=== PATIENT | female | born 1945 | race Caucasian/White ===

== ENCOUNTER 2020-09-20 09:07 | Outpatient (CLI) | payer MEDICARE, BC, SELFPAY ==
[2020-09-20 09:26] LABS: Basophils Absolute Auto 0.1 K/mm3 (0.0-0.1); Basophils Percent Auto 0.8 % (0.2-1.2); Eosinophils Absolute Auto 0.1 K/mm3 (0-0.3); Eosinophils Percent Auto 1.7 % (0-4.4); Hematocrit 43.5 % (37.0-47.0); Hemoglobin 14.7 g/dL (12.0-15.0); Immature Granulocyte Absolute 0.02 K/mm3 (0.00-0.031); Immature Granulocyte Percent A 0.2 % (0-0.5); Lymphocytes Absolute Auto 2.59 K/mm3 (0.9-3.2); Lymphocytes Percent Auto 31.1 % (18.3-44.2); Mean Corpuscular HGB Conc 33.8 g/dl (32-36); Mean Corpuscular Hemoglobin 29.7 pg (26-34); Mean Corpuscular Volume 87.9 fl (80-100); Mean Platelet Volume 10.1 fl (7.4-10.4); Monocytes Absolute Auto 0.6 K/mm3 (0.1-0.6); Monocytes Percent Auto 6.6 % (2.6-8.5); Neutrophils Percent Auto 59.6 % (45.5-73.1); Platelet Count Result 252 k/mm3 (150-375); Red Blood Count 4.95 M/mm3 (4.2-5.4); Red Cell Distribution Width 12.8 % (11.5-14.5); White Blood Count 8.3 K/mm3 (4.5-10.0)
[2020-09-20 09:51] LABS: Alanine Aminotransferase 23 U/L (4-35); Albumin Level 4.1 g/dL (3.5-5.1); Alkaline Phosphatase 96 U/L (38-126); Anion Gap 8 mmol/L (8-16); Aspartate Amino Transferase 33 U/L (14-36); Bilirubin,Total 0.8 mg/dL (0.2-1.3); Blood Urea Nitrogen 9 mg/dL (7-17); Calcium 9.3 mg/dL (8.4-10.2); Carbon Dioxide 26 mmol/L (22-30); Chloride 105 mmol/L (98-107); Cholesterol 214 mg/dL (0-200); Estimated Glomerular Filt Rate > 60; Glucose 119 mg/dL (65-105); HDL Direct 58 mg/dL; Potassium 4.1 mmol/L (3.4-5.0); Sodium 139 mmol/L (137-145); Triglycerides 158 mg/dL (<150)
[2020-09-20 10:02] LABS: LDL Cholesterol Direct 124 mg/dL
[2020-09-20 10:21] LABS: Thyroid Stimulating Hormone 0.135 uIU/mL (0.465-4.680)
[2020-09-20 10:30] LABS: Free T4 Free Thyroxine 1.87 ng/mL (0.78-2.19)
[2020-09-20 10:56] LABS: Folic Acid 18.5 ng/mL (2.76->20)
== END 2020-09-20 09:08 | disposition home or self-care (01) ==
PROVIDERS: PCP Internal Medicine; Visit Provider Internal Medicine
DX: E03.9 Hypothyroidism, unspecified (principal); D72.829 Elevated white blood cell count, unspecified; E78.5 Hyperlipidemia, unspecified; R53.83 Other fatigue
CPT/HCPCS: 36415; 80053; 80061; 82607; 82746; 84439; 84443; 85025

== ENCOUNTER 2021-07-03 02:29 | Emergency (ER) | payer MEDICARE, BC, SELFPAY ==
--- NOTE | ~2021-07-03 | XR_ITS ---
EXAMINATION: XR chest 2V DATE: 07/03/2021 06:36 INDICATION: Syncope. Mid to lower back pain. TECHNIQUE: frontal and lateral views of the chest were obtained. COMPARISON: Chest radiograph dated 06/14/08 FINDINGS: Mild streaky bibasilar atelectasis. No pleural effusion or pneumothorax. The cardiomediastinal silhou ette is normal. Chronic mild anterior wedging at T12. IMPRESSION: 1. Mild bibasilar atelectasis. Reviewed, dictated and finalized at location A. [employer]ING O[employer]
--- NOTE | 2021-07-03 03:43 | PC.NURSE ---
Pt drove self to ER c/o left sided mid-back pain that she noticed when getting up out of a chair yesterday at 1000. Took tylenol group captain without relief. Ambulates at home without assist. a/o x 4. no s/s of distress. Denies urinary symptoms like burning or frequency.
[2021-07-03] MEDS: KETOROLAC 30 MG/ML VIAL (*BKC) IM (03:59)
[2021-07-03] MEDS: ONDANSETRON HCL ODT 4 MG TABLET PO (04:17)
[2021-07-03 04:18] VITALS: BP 121/80; PULSE 82; RESP 18; O2SAT 98
--- NOTE | 2021-07-03 04:21 | PC.NURSE ---
0404 charge nurse reports patient passed out. pt flush and talking after episode
--- NOTE | 2021-07-03 04:23 | PC.NURSE ---
0415 states feeling better now return to normal color for patient.
--- NOTE | 2021-07-03 04:24 | ED.BACK ---
HPI - Back Pain/Injury General Chief Complaint: Back Pain/Injury Stated Complaint: back pain Time Seen by Provider: 07/03/21 03:29 Source: patient History of Present Illness HPI Narrative: Patient presents with left-sided back pain. Reports a history of chronic back pain related to known arthritis. She was working on her iPad and she developed left-sided back pain. Her pain got progressively worse so she came to the ER for evaluation. She denies any trauma she denies falling down she denies any specific injury to her back. Denies any urinary symptoms denies any changes in stool denies any abdominal pain, nausea, vomiting, fever she denies any recent spinal instrumentation she denies any major changes in weight she denies any IV drug use Related Data Allergies Allergy/AdvReac Type Severity Reaction Status Date / Time Sulfa (Sulfonamide Allergy Mild Rash Verified 07/03/21 03:45 Antibiotics) Review of Systems Review of Systems: CONSTITUTIONAL: Denies fever, chills, or sweats. EYES: Denies visual changes, redness, or discharge. ENT: Denies rhinorrhea, congestion, sore throat, or otalgia. CARDIOVASCULAR: Denies chest pain, palpitations, or edema. RESPIRATORY: Denies cough or dyspnea. GASTROINTESTINAL: Denies abdominal pain, nausea, vomiting, or diarrhea. GENITOURINARY: Denies dysuria or hematuria. SKIN: Denies rash or itching. MUSCULOSKELETAL: Denies joint pain, or myalgia. NEUROLOGIC: Denies headache, numbness, dizziness, or weakness. PSYCHIATRIC: Denies anxiety or depression. All systems reviewed & are unremarkable except as noted in HPI and below PMFSH Family History Family History Mother Carcinoma of colon Patient's mother is Other Family history of lung cancer Social History Social History Smoking status: Never smoker Second hand tobacco smoke exposure: No Alcohol intake: never Substance use: never Exam Narrative: GENERAL: Well-appearing, well-nourished, and in no acute distress. HEAD: Normocephalic, atraumatic. EYES: PERRLA and EOMI. ENT: Nares clear, no rhinorrhea or epistaxis. Mucous membranes moist. NECK: Supple. No masses. No JVD CHEST: Clear to auscultation. No respiratory distress. No wheezes rales or rhonchi HEART: Regular rate and rhythm. No murmur heard. Normal peripheral pulses. ABDOMEN: Soft, nontender, nondistended, normal active bowel sounds. EXTREMITIES: Patient ambulates without difficulty patient has 5 out of 5 strength in bilateral lower extremities sensation intact to light touch in the bilateral lower extremities. BACK: Tenderness palpation on the left paraspinal lower thoracic area with muscle mild spasm noted T10. SKIN: Warm, dry, no rash. NEURO: No focal deficits. Alert and oriented x3. PSYCH: Normal mood and affect. Course Reevaluation(s) Reevaluation #1: Patient had a vasovagal event after giving her Toradol shot. Date: 07/03/21 Time: 04:17 Reevaluation #2: Patient is reporting feeling much improved Date: 07/03/21 Time: 04:52 Reevaluation #3: Patient reports symptoms have completely resolved results and plan reviewed with patient. Patient comfortable with outpatient plan. Date: 07/03/21 Time: 07:31 Vital Signs Vital signs: Vital Signs Pulse Rate 82 07/03/21 04:18 Respiratory Rate 18 07/03/21 04:18 Blood Pressure 121/80 07/03/21 04:18 Pulse Oximetry 98 07/03/21 04:18 Pulse Rate 80 07/03/21 07:56 Respiratory Rate 24 H 07/03/21 07:56 Blood Pressure 112/68 07/03/21 07:56 Pulse Oximetry 93 07/03/21 07:56 MDM - Back Pain/Injury MDM Narrative Medical decision making narrative: H&P as above, vss, pt looks clinically well, exam muscle spasm and not noted no focal neurological deficits, labs are clinically unremarkable, imaging clinically unremarkable labs/img considered, symptomatic relief available as needed, patie
--- NOTE | 2021-07-03 05:13 | ECG_ITS ---
Measurements Intervals [place] Rate: 86 P: 29 SD: 158 QRS: -21 QRSD: 81 T: 22 QT: 351 QTc: 421 Interpretive Statements SINUS RHYTHM DELAYED PRECORDIAL R/S TRANSITION BASELINE ARTIFACT- I, II, III, AVR, AVL BORDERLINE ECG Electronically Signed On 07-03-2021 7:10:09 [employer] [employer] by Favian Carnes D.O.
[2021-07-03 06:15] VITALS: PULSE 95; RESP 20; O2SAT 94
[2021-07-03 06:18] VITALS: BP 134/76; PULSE 96; RESP 20; O2SAT 95
--- NOTE | 2021-07-03 06:46 | PC.NURSE ---
Pt moved to H2 after ED RN Reid administered IM toradol, and pt had brief syncopal episode, witnessed by ED MD. Pt then reported feeling better, but then became nauseous and vomited x 1. Now, pt reports feeling much improved, however, no explanation for her symptoms. currently at xray. labs to be redrawn d/t reported hemolyzation. pt agreeable to new orders.
[2021-07-03 06:48] VITALS: PULSE 87; RESP 15; O2SAT 98
[2021-07-03] MEDS: SODIUM CHLORIDE 0.9% IV 1,000 ML 999 ML IV CONT (06:56)
[2021-07-03 07:10] LABS: Basophils Percent Auto 0.8 % (0.2-1.2); Eosinophils Percent Auto 0.2 % (0-4.4); Hematocrit 43.3 % (37.0-47.0); Hemoglobin 14.3 g/dL (12.0-15.0); Immature Granulocyte Absolute 0.02 K/mm3 (0.00-0.031); Immature Granulocyte Percent A 0.4 % (0-0.5); Lymphocytes Absolute Auto 0.72 K/mm3 (0.9-3.2); Lymphocytes Percent Auto 14.3 % (18.3-44.2); Mean Corpuscular Hemoglobin 30.9 pg (26-34); Mean Corpuscular Volume 93.5 fl (80-100); Mean Platelet Volume 10.6 fl (7.4-10.4); Monocytes Absolute Auto 0.5 K/mm3 (0.1-0.6); Monocytes Percent Auto 10.3 % (2.6-8.5); Neutrophils Absolute Auto 3.7 K/mm3 (1.3-6.7); Platelet Count Result 174 k/mm3 (150-375); Red Blood Count 4.63 M/mm3 (4.2-5.4); Red Cell Distribution Width 13.2 % (11.5-14.5)
[2021-07-03 07:20] LABS: Alanine Aminotransferase 31 U/L (4-35); Albumin Level 4.3 g/dL (3.5-5.1); Alkaline Phosphatase 85 U/L (38-126); Anion Gap 11 mmol/L (8-16); Aspartate Amino Transferase 43 U/L (14-36); Bilirubin,Total 0.5 mg/dL (0.2-1.3); Blood Urea Nitrogen 11 mg/dL (7-17); Calcium 8.9 mg/dL (8.4-10.2); Carbon Dioxide 24 mmol/L (22-30); Chloride 102 mmol/L (98-107); Estimated Glomerular Filt Rate > 60; Glucose 156 mg/dL (65-110); Lactic Acid Reflex 1.2 mmol/L (0.7-2.1); Potassium 3.8 mmol/L (3.4-5.0); Sodium 137 mmol/L (137-145)
[2021-07-03 07:56] VITALS: BP 112/68; PULSE 80; RESP 24; O2SAT 93
== END 2021-07-03 07:57 | disposition home or self-care (01) ==
PROVIDERS: Emergency Provider Emergency Medicine; PCP Internal Medicine
DX: S39.012A Strain of muscle, fascia and tendon of lower back, initial encounter (principal); M19.90 Unspecified osteoarthritis, unspecified site; X50.1XXA Overexertion from prolonged static or awkward postures, initial encounter
CPT/HCPCS: 36415; 71046; 80053; 83605; 85025; 93005; 96360; 96372; 99284; A9270; J1885; J7030

== ENCOUNTER 2021-12-12 06:47 | Outpatient (CLI) | payer MEDICARE, BC, SELFPAY ==
[2021-12-12 07:17] LABS: Basophils Absolute Auto 0.1 K/mm3 (0.0-0.1); Basophils Percent Auto 1.3 % (0.2-1.2); Eosinophils Absolute Auto 0.2 K/mm3 (0-0.3); Eosinophils Percent Auto 2.3 % (0-4.4); Hematocrit 47.1 % (37.0-47.0); Hemoglobin 15.3 g/dL (12.0-15.0); Immature Granulocyte Absolute 0.03 K/mm3 (0.00-0.031); Immature Granulocyte Percent A 0.4 % (0-0.5); Lymphocytes Absolute Auto 1.75 K/mm3 (0.9-3.2); Lymphocytes Percent Auto 25.1 % (18.3-44.2); Mean Corpuscular HGB Conc 32.5 g/dl (32-36); Mean Corpuscular Hemoglobin 29.7 pg (26-34); Mean Corpuscular Volume 91.3 fl (80-100); Mean Platelet Volume 10.3 fl (7.4-10.4); Monocytes Absolute Auto 0.5 K/mm3 (0.1-0.6); Monocytes Percent Auto 7.4 % (2.6-8.5); Neutrophils Absolute Auto 4.4 K/mm3 (1.3-6.7); Neutrophils Percent Auto 63.5 % (45.5-73.1); Platelet Count Result 235 k/mm3 (150-375); Red Blood Count 5.16 M/mm3 (4.2-5.4); Red Cell Distribution Width 13.4 % (11.5-14.5)
[2021-12-12 07:28] LABS: Cholesterol 265 mg/dL (0-200); HDL Direct 57 mg/dL; Triglycerides 153 mg/dL (<150)
[2021-12-12 07:38] LABS: LDL Cholesterol Direct 147 mg/dL
[2021-12-12 07:49] LABS: Free T4 Free Thyroxine 1.52 ng/mL (0.78-2.19)
[2021-12-12 08:33] LABS: Folic Acid 9.9 ng/mL (2.76->20)
== END 2021-12-12 06:48 | disposition home or self-care (01) ==
PROVIDERS: PCP Internal Medicine; Visit Provider Internal Medicine
DX: E78.5 Hyperlipidemia, unspecified (principal); R73.9 Hyperglycemia, unspecified; E03.9 Hypothyroidism, unspecified; R53.83 Other fatigue
CPT/HCPCS: 36415; 80061; 82607; 82746; 84439; 84443; 85025

== ENCOUNTER 2023-01-29 07:12 | Outpatient (CLI) | payer MEDICARE, BC, SELFPAY ==
[2023-01-29 08:12] LABS: Basophils Absolute Auto 0.1 K/mm3 (0.0-0.1); Eosinophils Absolute Auto 0.1 K/mm3 (0-0.3); Eosinophils Percent Auto 1.6 % (0-4.4); Hematocrit 44.3 % (37.0-47.0); Hemoglobin 14.4 g/dL (12.0-15.0); Immature Granulocyte Absolute 0.02 K/mm3 (0.00-0.031); Immature Granulocyte Percent A 0.3 % (0-0.5); Lymphocytes Absolute Auto 1.75 K/mm3 (0.9-3.2); Lymphocytes Percent Auto 28.6 % (18.3-44.2); Mean Corpuscular HGB Conc 32.5 g/dl (32-36); Mean Corpuscular Hemoglobin 30.4 pg (26-34); Mean Corpuscular Volume 93.5 fl (80-100); Mean Platelet Volume 10.5 fl (7.4-10.4); Monocytes Absolute Auto 0.4 K/mm3 (0.1-0.6); Neutrophils Absolute Auto 3.8 K/mm3 (1.3-6.7); Neutrophils Percent Auto 61.5 % (45.5-73.1); Platelet Count Result 195 k/mm3 (150-375); Red Blood Count 4.74 M/mm3 (4.2-5.4); Red Cell Distribution Width 13.2 % (11.5-14.5); White Blood Count 6.1 K/mm3 (4.5-10.0)
[2023-01-29 08:19] LABS: Alanine Aminotransferase 17 U/L (6-35); Albumin Level 4.2 g/dL (3.5-5.1); Alkaline Phosphatase 80 U/L (38-126); Anion Gap 6 mmol/L (8-16); Aspartate Amino Transferase 25 U/L (14-36); Blood Urea Nitrogen 10 mg/dL (7-17); Calcium 9.1 mg/dL (8.4-10.2); Carbon Dioxide 30 mmol/L (22-30); Chloride 104 mmol/L (98-107); Cholesterol 252 mg/dL (0-200); Estimated Glomerular Filt Rate > 60; Glucose 113 mg/dL (65-110); HDL Direct 58 mg/dL; Potassium 4.8 mmol/L (3.4-5.0); Sodium 140 mmol/L (137-145); Triglycerides 131 mg/dL (<150)
[2023-01-29 08:30] LABS: LDL Cholesterol Direct 142 mg/dL
[2023-01-29 08:37] LABS: Free T4 Free Thyroxine 1.33 ng/mL (0.78-2.19)
== END 2023-01-29 07:13 | disposition home or self-care (01) ==
PROVIDERS: PCP Internal Medicine; Visit Provider Internal Medicine
DX: D72.829 Elevated white blood cell count, unspecified (principal); E03.9 Hypothyroidism, unspecified; E53.8 Deficiency of other specified B group vitamins; E78.5 Hyperlipidemia, unspecified; R73.9 Hyperglycemia, unspecified
CPT/HCPCS: 36415; 80053; 80061; 82607; 84439; 84443; 85025